=== PATIENT | male | born 1970 | race Caucasian/White ===

== ENCOUNTER → 2017-09-13 | Outpatient (CLI) | payer OTHER ==
[~2017-09-13] MED LIST: LOR5 PO; LOR5/325 PO; NO ROUTINE MEDS; PER PO; PIRO-91 PO
--- NOTE | 2017-09-13 16:04 | RADIOLOGY IMAGING REPORT ---
FACILITY: [facility] PATIENT NAME: Jose Hsu : 1970 MR: [id number] V: [id number] EXAM DATE: ORDERING PHYSICIAN: SHAMA WEST TECHNOLOGIST: Location: [facility] [place] Patient: Jose Hsu : 1970 Visit/Account:[id number] Date of Sevice: 09/13/2017 KNEE LEFT W/O CONTRAST COMPARISON: None. HISTORY: Medial sided left knee pain for one year. TECHNIQUE: Noncontrast multiplanar MRI of the left knee utilizing T1 weighted and fluid sensitive se quences. CONTRAST: None. FINDINGS: FLUID: There is no effusion or Berrios's cyst. MENISCI: The menisci are intact. TENDONS/LIGAMENTS: The cruciate and medial collateral ligaments, lateral collateral ligamentous comp reanna and extensor mechanism are intact. The biceps and popliteus tendons are intact. MUSCLES: There is no muscle atrophy or edema. CARTILAGE: Mild partial-thickness cartilage loss lining the lateral patellar facet at its junction w ith the median ridge with mild subjacent subchondral edema. Small partial-thickness foci of articular cartilage loss lining the trochlear notch laterally with mild subjacent subchondral edema. There is no significant cartilage loss in the medial or lateral compartments. BONES: Otherwise normal marrow signal and alignment. OTHER: Negative. IMPRESSION: 1. Mild left knee chondromalacia patella. 2. Intact menisci and ligaments. Report Dictated By: Layton Mathis at 09/13/2017 3:55 PM Report E-Signed By: Layton Mathis at 09/13/2017 4:00 PM WSN:[id number]
== END ==
LOC: MRI 14:55
PROVIDERS: ATTEND Family Medicine
DX: M22.42 Chondromalacia patellae, left knee (principal)

== ENCOUNTER → 2019-03-24 | Outpatient (CLI) | payer OTHER ==
--- NOTE | 2019-03-24 16:04 | RADIOLOGY IMAGING REPORT ---
FACILITY: [facility] PATIENT NAME: Jose Hsu : 1970 MR: [id number] V: [id number] EXAM DATE: ORDERING PHYSICIAN: JULIANN WILLINGHAM TECHNOLOGIST: Location: [facility] Patient: Jose Hsu : 1970 Visit/Account:[id number] Date of Sevice: 03/24/2019 Exam type: XR ARTHROGRAM PRE-MRI History: Right shoulder pain, multiple right shoulder surgeries in the past Comparison: None. Findings: Informed consent was obtained. The patient's right shoulder was prepped and draped usual sterile fas hion. Local anesthesia was accomplished with 1% lidocaine. Under fluoroscopic guidance a 22-gauge s ifrah needle was advanced percutaneously into the anterior aspect of the right shoulder. Approximate ly 10 mL of a dilute gadolinium suspension was injected although the follow-up MRI demonstrated only a very small amount of contrast within the right shoulder joint. The patient then returned to the dc uoroscopy suite and the right shoulder was again prepped and draped usual sterile fashion. Anesthesi a was provided with 1% lidocaine. 22-gauge spinal needle was advanced percutaneously into the anteri or aspect the right shoulder joint. Approximately 10 mL of dilute gadolinium suspension was injected into the right shoulder joint. The patient then went to for further imaging. The procedure was accomplished without apparent complication.. The dose area product was 425.21 micro-Lopez per meter s quared IMPRESSION: 1. Successful fluoroscopically guided right shoulder arthrogram Report Dictated By: Sue Pham MD at 03/24/2019 3:53 PM Report E-Signed By: Sue Pham MD at 03/24/2019 3:56 PM WSN:[id number]
--- NOTE | 2019-03-24 16:21 | RADIOLOGY IMAGING REPORT ---
FACILITY: [facility] - [place] PATIENT NAME: Jose Hsu : 1970 MR: [id number] V: [id number] EXAM DATE: ORDERING PHYSICIAN: JULIANN WILLINGHAM TECHNOLOGIST: Location: [facility] - [place] Patient: Jose Hsu : 1970 Visit/Account:[id number] Date of Sevice: 03/24/2019 MR arthrogram right shoulder Indication: Shoulder pain. Impingement. Comparison: None available Technique: Multiplanar, multisequence MRI arthrogram is performed of the right shoulder with dilute i ntra-articular gadolinium. Findings: Exam is compromised by patient motion on multiple sequences. There are changes of previous acromioplasty and distal clavicle resection. Postsurgical artifact is s een in the subacromial space. The glenohumeral joint is well distended with gadolinium. The joint space is appropriately aligned. T here is chondrosis involving the anterior and inferior glenoid with subchondral edema-like signal and cyst formation. There is abnormal imbibition of gadolinium identified into the anterior-inferior gle noid labrum extending to the inferior labrum in the setting of a glenoid labrum tear. Posterior to th e biceps insertion, there is imbibition of gadolinium into the superior labrum suspicious for a focal SLAP tear. No gadolinium filling para labral cyst is seen. With respect to the rotator cuff, there is supraspinatus and infraspinatus insertional tendinopathy i dentified. There is low-grade bursal sided tearing of the supraspinatus and infraspinatus tendons. Fo beth low-grade undersurface tearing is seen at the junction of the supraspinatus and infraspinatus ten dons. No evidence of high-grade or full-thickness rotator cuff tear. There is no gadolinium within th e subacromial-subdeltoid bursa. There is subscapularis insertional tendinopathy without discrete tear . There is a small amount of fluid within the subacromial-subdeltoid bursa. Rotator cuff musculature is normal in bulk. IMPRESSION: 1. Arthrogram findings compatible with tearing of the right shoulder anterior-inferior glenoid labrum . There is associated intermediate glenoid chondrosis. 2. Focal SLAP tear involving the glenoid labrum just posterior to the biceps insertion. 3. Rotator cuff insertional tendinopathy with low-grade areas of bursal sided and undersurface tearin g. No high-grade or full-thickness tear. 4. Changes of prior acromioplasty and distal clavicle resection. 5. Trace fluid in the subacromial-subdeltoid bursa. Report Dictated By: Raman Raza at 03/24/2019 4:03 PM Report E-Signed By: Raman Raza at 03/24/2019 4:12 PM WSN:[id number]
== END ==
LOC: MRI 07:06
PROVIDERS: ATTEND Physician Assistant
DX: S43.431A Superior glenoid labrum lesion of right shoulder, initial encounter (principal)
CPT/HCPCS: 27369; 73222; A9577